=== PATIENT | female | born 1975 | race Caucasian/White ===

== ENCOUNTER 2024-12-20 06:18 | Day surgery (SDC) | payer SELFPAY ==
[2024-12-14 13:55] VITALS: BMI 22.1
[2024-12-20] MEDS ORDERED: BUPIVACAINE HCL/PF 2.5 MG/ML - 30 ML VIAL IJ ONE (07:22)
[2024-12-20] MEDS ORDERED: POLYMYXIN B SULFATE 500,000 UNIT VIAL ONE (07:22)
[2024-12-20] MEDS ORDERED: GENTAMICIN SO4 80 MG/2 ML VIAL ONE (07:22)
[2024-12-20] MEDS ORDERED: ceFAZolin SODIUM 1 GM VIAL ONE ×2 (07:22→09:42)
[2024-12-20] MEDS ORDERED: MIDAZOLAM HCL 2 MG/2 ML SINGLE DOSE VIAL ONE (07:49)
[2024-12-20] MEDS ORDERED: PROPOFOL 20 ML ONE (07:49)
[2024-12-20] MEDS ORDERED: ROCURONIUM BROMIDE 50 MG/5 ML SYRINGE ONE ×2 (07:57→08:54)
[2024-12-20] MEDS ORDERED: BUPIVACAINE HCL/PF 0.5% (5MG/ML) 10 ML VIAL ONE (08:08)
[2024-12-20] MEDS ORDERED: oxyCODONE HCL 5 MG TABLET PO PRN ×3 (08:09→10:26)
[2024-12-20] MEDS ORDERED: ACETAMINOPHEN INJECTION 100 ML ONE (08:11)
[2024-12-20] MEDS ORDERED: LACTATED RINGERS SOLUTION 1,000 ML IV SCH ×2 (08:15→10:30)
[2024-12-20] MEDS: BUPIVACAINE HCL/PF 0.5% (5MG/ML) 10 ML VIAL IJ ONE ×2 (08:58→09:12)
[2024-12-20] MEDS ORDERED: DEXAMETHASONE SOD PHOSPHATE 4 MG/1 ML VIAL ONE (09:42)
[2024-12-20] MEDS ORDERED: SUGAMMADEX SODIUM 200 MG/2 ML VIAL ONE (09:42)
[2024-12-20] MEDS ORDERED: ONDANSETRON 4 MG/2 ML VIAL ONE ×2 (09:42→10:31)
[2024-12-20] MEDS ORDERED: FENTANYL CITRATE/PF 50 MCG/ML VIAL ONE ×2 (10:19→10:49)
[2024-12-20 10:43] VITALS: TEMP 97.3
[2024-12-20] MEDS: ONDANSETRON 4 MG/2 ML VIAL IVPUSH PRN (10:52)
[2024-12-20] MEDS: oxyCODONE HCL 5 MG TABLET PO PRN (11:30)
[2024-12-20] MEDS ORDERED: oxyCODONE HCL 5 MG TABLET ONE (11:31)
[2024-12-20 11:40] VITALS: RESP 18
[2024-12-20 12:22] VITALS: BP 105/73; PULSE 64
[2024-12-20] MEDS ORDERED: ONDANSETRON 4 MG/2 ML VIAL IVPB PRN (14:10)
== END 2024-12-20 12:20 | disposition home or self-care (01) ==
LOC: FASU 06:18
PROVIDERS: ATTEND Plastic Surgery
PROC: 0H0V0JZ Alteration of Bilateral Breast with Synthetic Substitute, Open Approach (ICD-10-PCS; principal; 2024-12-20 08:45)
DX: N62 Hypertrophy of breast (principal)
CPT/HCPCS: 19325; L8600; 81025; 94760; J0131